=== PATIENT | male | born 2000 | race African-American/Black ===

== ENCOUNTER 2024-01-22 18:17 | Emergency (ER) | payer MEDICAID ==
[~2024-01-22] VITALS: Ht 177.8 cm; Wt 90.0 kg
[2024-01-22 18:30] VITALS: BP 144/106; PULSE 100; RESP 18; TEMP 98.5; O2SAT 99
[2024-01-22] MEDS ORDERED: TETANUS, DIPHTHERIA, PERTUSSIS VAC/PF 0.5ML (>10YR OLD) IM ONE (19:00)
[2024-01-22] MEDS ORDERED: HYDROCODONE/ACETAMINOPHEN 10/325MG TABLET PO ONE (19:00)
[2024-01-22] MEDS ORDERED: LIDOCAINE HCL 1% 20ML VIAL INFIL ONE (19:00)
[2024-01-22] MEDS ORDERED: WATER FOR IRRIGATION,STERILE 500 ML IRRIG.SOLN IR NR (20:00)
[2024-01-22] MEDS ORDERED: AMOX1TAB16 MT (20:44)
== END 2024-01-22 21:55 | disposition home or self-care (01) ==
LOC: ER 18:17
DX: S61.412A Laceration without foreign body of left hand, initial encounter (principal); S61.411A Laceration without foreign body of right hand, initial encounter; Y08.89XA Assault by other specified means, initial encounter; Y93.89 Activity, other specified; Y92.89 Other specified places as the place of occurrence of the external cause; Y99.8 Other external cause status
CPT/HCPCS: 73100; 73120; 12002; 99284; Z7610 ×3; 90715